=== PATIENT | female | born 1995 | race Caucasian/White ===

== ENCOUNTER → 2016-12-04 | Outpatient (CLI) | payer OTHER ==
[2016-12-10 04:31] LABS: ANTI-CENTROMERE AB <1.0 NEG AI (<1.0 NEG); ANTI-SS-A <1.0 NEG AI (<1.0 NEG); ANTI-SS-B <1.0 NEG AI (<1.0 NEG); DNA ds CRITHIDIA NEGATIVE (NEGATIVE); Sm Antibody <1.0 NEG AI (<1.0 NEG)
== END | disposition home or self-care (01) ==
LOC: C.LAB1850 09:41
PROVIDERS: ATTEND Internal Medicine Rheumatology
DX: R20.0 Anesthesia of skin (principal); Q79.6 Ehlers-Danlos syndromes; R76.8 Other specified abnormal immunological findings in serum

== ENCOUNTER → 2018-01-07 | Outpatient (CLI) | payer OTHER ==
--- NOTE | 2018-01-07 14:49 | DIAGNOSTIC IMAGING REPORT ---
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 LEFT HAND PAIN, Raynaud's disease COMPARISON: None. DISCUSSION: No fractures are visualized. There are no subluxations. There is no erosive disease. There is no significant joint space narrowing. IMPRESSION: Unremarkable conventional radiographic evaluation of the left hand. Electronically signed by: Ray Mcguire M.D. 01/07/2018 2:48 PM Dictated Date/Time: 01/07/2018 2:47 PM
--- NOTE | 2018-01-07 14:51 | DIAGNOSTIC IMAGING REPORT ---
R HAND MIN 3 VIEWS ROUTINE CLINICAL HISTORY: K21.9, I73.00, R76.8 pain COMPARISON: None. DISCUSSION: The bones and joint spaces appear intact. There is no evidence of fracture, dislocation or bony disease. There is no evidence for soft tissue swelling. IMPRESSION: Negative study. The above report was generated using voice recognition software. It may contain grammatical, syntax or spelling errors. Electronically signed by: Arnie Denis M.D. 01/07/2018 2:50 PM Dictated Date/Time: 01/07/2018 2:48 PM
== END | disposition home or self-care (01) ==
LOC: C.RAD1850 14:15
PROVIDERS: ATTEND Internal Medicine Rheumatology
DX: I73.00 Raynaud's syndrome without gangrene (principal); K21.9 Gastro-esophageal reflux disease without esophagitis; R76.8 Other specified abnormal immunological findings in serum